=== PATIENT | female | born 1950 | race Asian ===

== ENCOUNTER 2018-07-27 15:05 | Emergency (ER) | payer OTHER, BC ==
[~2018-07-27] VITALS: Ht 160 cm; Wt 55.8 kg
[2018-07-27 15:17] VITALS: Ht 160 cm; Wt 55.8 kg
[2018-07-27 17:24] VITALS: BP 154/76
== END 2018-07-27 17:20 | disposition home or self-care (01) ==
LOC: ED 15:05
DX: I10 Essential (primary) hypertension (principal); J45.909 Unspecified asthma, uncomplicated; E03.9 Hypothyroidism, unspecified; Z88.6 Allergy status to analgesic agent

== ENCOUNTER 2019-04-19 11:05 | Emergency (ER) | payer OTHER, BC ==
[~2019-04-19] VITALS: Ht 160 cm; Wt 54.4 kg
[2019-04-19 11:09] VITALS: Ht 160 cm; Wt 54.4 kg
[2019-04-19 11:47] LABS: BASOPHIL % 0.2 % (0-2); PLATELET COUNT 271 x10^3mcL (130-400); RED CELL DISTRIBUTION WIDTH 13.5 % (11.5-14.5)
[2019-04-19 11:55] LABS: CALCIUM 8.8 mg/dL (8.5-10.1); CARBON DIOXIDE 23.7 mmol/L (21-32); CHLORIDE SERUM 105 mmol/L (98-107); CREATININE SERUM 0.8 mg/dL (0.6-1.0); GFR1 > 60 mL/min; GLUCOSE SERUM 104 mg/dL (74-106); POTASSIUM SERUM 3.9 mmol/L (3.5-5.1); SODIUM SERUM 141 mmol/L (136-145)
[2019-04-19 12:00] LABS: ALBUMIN 4.1 g/dL (3.4-5.0); ALKALINE PHOSPHATASE 90 U/L (46-116); ALT/SGPT 18 U/L (14-59); AST/SGOT 17 U/L (15-37); BILIRUBIN TOTAL 0.63 mg/dL (0.20-1.00); TOTAL PROTEIN, SERUM 7.9 g/dL (6.4-8.2)
[2019-04-19 12:53] LABS: UA SPECIFIC GRAVITY >=1.030 (1.005-1.035); microscopic required? YES; urine erythrocyte 2+ (NEGATIVE)
[2019-04-19 13:05] VITALS: BP 144/68
== END 2019-04-19 13:05 | disposition home or self-care (01) ==
LOC: ED 11:05
PROVIDERS: Emergency Medicine
DX: J45.901 Unspecified asthma with (acute) exacerbation (principal); I10 Essential (primary) hypertension; Z88.6 Allergy status to analgesic agent
CPT/HCPCS: J2930; J7030; J7613; J7644; Q0092

== ENCOUNTER 2020-08-08 00:01 | Emergency (ER) | payer OTHER, BC ==
[~2020-08-08] VITALS: Ht 160 cm; Wt 29.9 kg
[2020-08-08 00:13] VITALS: Ht 160 cm; Wt 29.9 kg
[2020-08-08 00:55] LABS: BASOPHIL % 0.4 % (0-2); PLATELET COUNT 270 x10^3mcL (130-400); RED CELL DISTRIBUTION WIDTH 13.8 % (11.5-14.5)
[2020-08-08 01:08] LABS: CALCIUM 8.8 mg/dL (8.5-10.1); CARBON DIOXIDE 25.8 mmol/L (21-32); POTASSIUM SERUM 3.9 mmol/L (3.5-5.1)
[2020-08-08 01:15] LABS: BILIRUBIN TOTAL 0.32 mg/dL (0.20-1.00)
[2020-08-08 04:16] VITALS: BP 154/74
== END 2020-08-08 04:16 | disposition home or self-care (01) ==
LOC: ED 00:01
PROVIDERS: Emergency Medicine
DX: I10 Essential (primary) hypertension (principal); J45.909 Unspecified asthma, uncomplicated; Z88.6 Allergy status to analgesic agent